=== PATIENT | female | born 1960 | race Caucasian/White ===

== ENCOUNTER 2019-03-07 20:33 | Observation (INO) ==
[2019-03-07] MEDS ORDERED: Aspirin 81 MG TAB.CHEW PO ONE (20:47)
[2019-03-07] MEDS ORDERED: 0.9 % Sodium Chloride 1,000 ML IVC ONE (20:47)
[2019-03-07 21:15] LABS: Hematocrit 38.9 % (35.3-44.9); Hemoglobin 13.6 g/dL (11.5-15.4); Mean Corpuscular Hemoglobin 31.2 pg (28.0-33.3); Mean Corpuscular Volume 89.2 fL (83.0-100.0); Mean Platelet Volume 9.6 fL (9.4-12.4); Platelet Count 221 K/mcL (140-400); Red Blood Count 4.36 M/mcL (3.82-4.97); Red Cell Distribution Width 13.2 % (11.5-14.5)
[2019-03-07 21:23] LABS: INR 0.9; Prothrombin Time 10.5 Seconds (9.4-12.1)
[2019-03-07 21:25] LABS: Activated Partial Thrombo Time 35.5 Seconds (26.0-36.0)
[2019-03-07 21:40] LABS: Bilirubin,Urine Negative (Negative); Blood,Urine Moderate (Negative); Clarity,Urine Clear (Clear); Color,Urine Yellow (Yellow); Glucose,Urine (UA) Normal (Normal); Ketones,Urine Negative (Negative); Leukocyte Esterase,Urine Small (Negative); Nitrite,Urine Negative (Negative); Protein,Urine Negative (Neg-Trace); Specific Gravity,Urine 1.026 (1.010-1.025); Urobilinogen,Urine Normal (Normal)
[2019-03-07 21:42] LABS: Bacteria,Urine None Seen per hpf (None-Few); Hyaline Casts,Urine None Seen per lpf (None-Few); RBC,Urine 15-30 per hpf (0-3); Squamous Epithelial Cell,Urine Moderate per lpf (None-Few)
[2019-03-07 21:44] LABS: BUN/Creatinine Ratio 21 (6-26); Blood Urea Nitrogen 19 mg/dL (6-20); Calcium 9.4 mg/dL (8.6-10.3); Carbon Dioxide 27 mEq/L (23-29); Chloride 102 mEq/L (98-107); Glucose 105 mg/dL (70-105); Osmolality,Calculated 297 (280-300); Sodium 142 mEq/L (136-145); Troponin I < 0.03 ng/mL (< 0.04); eGFR For African Americans > 60 (> 60); eGFR For Non-African Americans > 60 (> 60)
[2019-03-07] MEDS ORDERED: GI Cocktail 40 ML EACH PO ONE (22:24)
[2019-03-08] MEDS ORDERED: Ondansetron 4 MG/2 ML VIAL IVP PRN (00:37)
[2019-03-08] MEDS ORDERED: Naloxone 0.4 MG/ML INJ IVP PRN (00:37)
[2019-03-08] MEDS ORDERED: Gadolinium Contrast Agent (WT Based) IV PRN (00:40)
[2019-03-08] MEDS: 0.9 % Sodium Chloride 1,000 ML IVC SCH ×2 (01:47→15:20)
[2019-03-08 05:37] LABS: Basophils % 0.3 %; Eosinophils # 0.1 K/mcL (0.0-0.6); Eosinophils % 2.1 %; Hematocrit 35.4 % (35.3-44.9); Immature Granulocytes % 0.2 % (0-4); Lymphocytes # 2.3 K/mcL (0.6-4.6); Lymphocytes % 39.3 %; Mean Corpuscular HGB Conc 33.3 g/dL (31.6-35.5); Mean Corpuscular Hemoglobin 30.5 pg (28.0-33.3); Mean Corpuscular Volume 91.5 fL (83.0-100.0); Mean Platelet Volume 9.3 fL (9.4-12.4); Monocytes # 0.4 K/mcL (0.0-1.3); Monocytes % 6.3 %; Platelet Count 172 K/mcL (140-400); Red Blood Count 3.87 M/mcL (3.82-4.97); Red Cell Distribution Width 13.2 % (11.5-14.5); Segmented Neutrophils % 51.8 %; White Blood Count 5.7 K/mcL (4.3-11.1)
[2019-03-08 05:38] LABS: Hemoglobin 11.8 g/dL (11.5-15.4)
[2019-03-08 06:06] LABS: Alanine Aminotransferase 16 Units/L (7-52); Albumin 3.8 g/dL (3.5-5.7); Albumin/Globulin Ratio 1.6 (1.1-2.2); Alkaline Phosphatase 51 Units/L (34-104); Aspartate Amino Transferase 13 Units/L (13-39); BUN/Creatinine Ratio 20 (6-26); Bilirubin,Total 0.4 mg/dL (0.3-1.0); Blood Urea Nitrogen 14 mg/dL (6-20); Calcium 8.6 mg/dL (8.6-10.3); Carbon Dioxide 27 mEq/L (23-29); Chloride 109 mEq/L (98-107); Chol/HDL Ratio 2.7 (0-4.9); Cholesterol 173 mg/dL (< 200); Globulin 2.4 g/dL (2.4-3.5); Glucose 98 mg/dL (70-105); HDL Cholesterol 64 mg/dL (40-59); LDL Cholesterol,Calculated 99 mg/dL (0-99); Osmolality,Calculated 292 (280-300); Potassium 3.9 mEq/L (3.5-5.1); Sodium 141 mEq/L (136-145); Total Protein 6.2 g/dL (6.4-8.9); Triglycerides 48 mg/dL (< 150); eGFR For African Americans > 60 (> 60); eGFR For Non-African Americans > 60 (> 60)
[2019-03-08 07:09] LABS: Estimated Average Glucose 97 mg/dl
[2019-03-08] MEDS: *HR* Enoxaparin 40 MG/0.4 ML SYRINGE SQ SCH (07:36)
[2019-03-09] MEDS: *HR* Enoxaparin 40 MG/0.4 ML SYRINGE SQ SCH (09:23)
[2019-03-09] MEDS ORDERED: Isovue-370 500 ML BOTTLE IVP ONE (11:13)
[2019-03-09 15:53] VITALS: BP 125/67
[2019-03-10] MEDS ORDERED: Aspirin 81 MG TAB.CHEW PO SCH (09:00)
== END 2019-03-09 18:03 | disposition home or self-care (01) ==
LOC: 3BNU 20:33 → EMEROOARM 20:33 → SUATTDRO 03-08 00:02 → 3BNU 03-08 00:57
PROVIDERS: ADMIT Student in an Organized Health Care Education/Training Program; ATTEND Student in an Organized Health Care Education/Training Program